=== PATIENT | male | born 1955 | race Caucasian/White ===

== ENCOUNTER 2017-07-01 07:09 | Day surgery (SDC) | payer OTHER ==
[~2017-07-01] VITALS: Ht 167.6 cm; Wt 88.5 kg
[2017-07-01] MEDS ORDERED: fentaNYL 0.05 MG/ML VIAL ONE (07:48)
[2017-07-01] MEDS ORDERED: LIDOCAINE VISCOUS 2% 20 ML UDC ONE (07:48)
[2017-07-01] MEDS ORDERED: MIDAZOLAM 2 MG/2 ML VIAL ONE ×2 (07:48)
[2017-07-01] MEDS ORDERED: LISI10TA11 PO (07:58)
[2017-07-01] MEDS ORDERED: SIMV10TA1 PO (07:58)
[2017-07-01] MEDS ORDERED: MIDAZOLAM 2 MG/2 ML VIAL IVP ONE (09:35)
== END 2017-07-01 09:35 | disposition home or self-care (01) ==
LOC: MOR 07:09 → MMU 07:09 → MOR 09:35
PROVIDERS: ATTEND Internal Medicine Gastroenterology
DX: K22.2 Esophageal obstruction (principal); Z87.891 Personal history of nicotine dependence
CPT/HCPCS: 36415; 43239; 86677; J2250; J3010